=== PATIENT | male | born 1980 | race Caucasian/White ===

== ENCOUNTER 2016-07-11 19:49 | Emergency (ER) | payer SELFPAY ==
[~2016-07-11] VITALS: Ht 180.3 cm; Wt 81.7 kg
[~2016-07-11 19:49] MED LIST: CIPR500T4 PO; HYDR-3498 PO; IBUP-1542 PO; METR500T PO; ONDA4TAB35 PO
[2016-07-11 20:00] VITALS: Ht 180.3 cm; Wt 81.7 kg
[2016-07-11] MEDS ORDERED: HYDROCODONE/APAP (5/325) TAB PO ONE (21:00)
--- NOTE | 2016-07-11 21:58 | ERD ---
ER Documentation Chief Complaint Date/Time DATE: 07/11/16 TIME: 21:57 Chief Complaint Pt c/o RUQ pain x 5 days hx of appendectomy HPI There is a 36-year-old male who presents to the emergency department today complaining of right-sided upper abdominal pain for the past 4-5 days. Patient states that is sharp and stabbing and intermittent and is worse after food. DC is in ibuprofen for the pain. States he has had a history of an appendectomy. Denies any nausea vomiting, fevers or chills. ROS All systems reviewed and are negative except as per history of present illness. Medications Home Meds Active Scripts Tramadol HCl (Tramadol HCl) 50 Mg Tablet, 50 MG PO Q4 Y for PAIN, #20 TAB Prov:MARTIN VILLAREAL PA-C 07/11/16 Ibuprofen* (Motrin*) 800 Mg Tab, 800 MG PO Q6, #30 TAB Prov:MARTIN VILLAREAL PA-C 07/11/16 Hydrocodone Bit-Acetaminophen* ([place]*) 5-325 Mg Tab, 1 TAB PO Q6 Y for PAIN, # 7 TAB Prov:SOFIA ARELLANO PA-C 05/31/15 Ibuprofen* (Motrin*) 600 Mg Tab, 600 MG PO Q6, #20 TAB Prov:SOFIA ARELLANO PA-C 05/31/15 Ondansetron Hcl* (Zofran* ODT) 4 mg -ODT Tab.disper, 4 MG PO Q8 Y for NAUSEA AND /OR VOMITING, #30 TAB Prov:PEPE HARE NP 02/04/15 Hydrocodone Bit-Acetaminophen* ([place]*) 5-325 Mg Tab, 1 TAB PO Q6 Y for PAIN, # 20 TAB Prov:PEPE HARE NP 02/04/15 Metronidazole* (Flagyl*) 500 Mg Tablet, 500 MG PO TID for 10 Days, TAB Prov:PEPE HARE NP 02/04/15 Ciprofloxacin Hcl* (Ciprofloxacin Hcl*) 500 Mg Tablet, 500 MG PO BID for 10 Days , TAB Prov:PEPE HARE NP 02/04/15 Allergies Allergies: Coded Allergies: No Known Allergy (Unverified , 04/08/14) PMhx/Soc History of Surgery: Yes (appendectomy) Anesthesia Reaction: No Hx Neurological Disorder: No Hx Respiratory Disorders: Yes (ASTHMA) Hx Cardiac Disorders: No Hx Psychiatric Problems: No Hx Alcohol Use: Yes Hx Substance Use: Yes Hx Tobacco Use: No Smoking Status: Never smoker Physical Exam Vitals Vital Signs Date Time Temp Pulse Resp B/P Pulse Ox O2 Delivery O2 Flow Rate FiO2 07/11/16 20:00 98.5 102 16 143/80 96 Physical Exam Const: No acute distress Head: Atraumatic Eyes: Normal Conjunctiva ENT: Normal External Ears, Nose and Mouth. Neck: Full range of motion..~ No meningismus. Resp: Clear to auscultation bilaterally Cardio: Regular rate and rhythm, no murmurs Abd: Soft, right upper quadrant tenderness, non distended. Normal bowel sounds. No epigastric pain. No right lower quadrant pain. No left lower quadrant pain. Skin: No petechiae or rashes Back: No midline or flank tenderness Ext: No cyanosis, or edema Neur: Awake and alert Psych: Normal Mood and Affect Result Diagram: 07/11/16213807/11/162138 Results 24 hrs Laboratory Tests Test 07/11/16 21:39 07/11/16 21:40 Alanine Aminotransferase (ALT/SGPT) 88IU/L Albumin 4.7g/dl Albumin/Globulin Ratio 1.38 Alkaline Phosphatase 58IU/L Anion Gap 19 Aspartate Amino Transf (AST/SGOT) 57IU/L Basophils # 0.110^3/ul Basophils % 1.0% Blood Urea Nitrogen 10mg/dl Calcium Level 9.6mg/dl Carbon Dioxide Level 24mmol/L Chloride Level 105mmol/L Creatinine 0.65mg/dl Direct Bilirubin 0.00mg/dl Eosinophils # 0.610^3/ul Eosinophils % 5.0% Globulin 3.40g/dl Glucose Level 84mg/dl Hematocrit 47.0% Hemoglobin 16.5g/dl Indirect Bilirubin 0.3mg/dl Lipase 122U/L Lymphocytes # 2.810^3/ul Lymphocytes % 25.1% Mean Corpuscular Hemoglobin 31.4pg Mean Corpuscular Hemoglobin Concent 35.2g/dl Mean Corpuscular Volume 89.3fl Mean Platelet Volume 8.7fl Monocytes # 0.910^3/ul Monocytes % 7.6% Neutrophils # 6.910^3/ul Neutrophils % 61.3% Nucleated Red Blood Cells # 0.010^3/ul Nucleated Red Blood Cells % 0.0/100WBC Platelet Count 51899^3/UL Potassium Level 4.1mmol/L Red Blood Count 5.2610^6/ul Red Cell Distribution Width 13.2% Sodium Level 144mmol/L Total Bilirubin 0.3mg/dl Total Protein 8.1g/dl White Blood Count 11.310^3/ul Urine Bacteria FEW Urine Bilirubin NEGATIVE Urine Clarity CLEAR Urine Color YELLOW Urine Glucose NEGATIVE% Urine Hemoglobin NEGATIVE Urine Ketones NEGATIVE Urine Leukocyte Esterase TRACE Urine Microscopic RBC NONE SEEN/HPF Urine Microscopic WBC 5-10/HPF Urine Nitrite NEGATIVE Urine Specific [place] 1.020 Urine Total Protein NEGATIVE Urine Urobilinogen 0.2 E.U./dL Urine pH 5.5 Current Medications Medications (Trade) Dose Ordered Sig/Raina Route PRN Reason Start Time Stop Time Status Last Admin Dose Admin Acetaminophen/ Hydrocodone Bitart ([place] (5/325)) 1 tab ONCE ONCE PO 07/11/16 21:00 07/11/16 21:01 DC 07/11/16 21:38 DIAGNOSTIC IMAGING REPORT Patient: BIA SHAFFER : 1980 Age: 36 Sex: M MR #: [id number] DOS: 07/11/162050 Ordering MD: MARTIN VILLAREAL PA-C Location: [facility] Room/Bed: PROCEDURE: US right upper quadrant CLINICAL INDICATION: Abdominal pain TECHNIQUE: Multiple real-time images were acquired of the patient's right upper abdomen utilizing a high resolution transducer. COMPARISON: Ultrasound 05/31/2015 FINDINGS: Liver: Diffusely increased echogenicity is consistent with stable hepatic steatosis. The previously seen area of normal spurring is not evident. There is no obvious mass or ductal dilatation. Normal directional blood flow is seen within the patent main portal vein. The maximum dimension estimated at 17.4 cm . Gallbladder: Echogenic sludge is now seen within the contracted lumen but there is no gallbladder wall thickening or gallstones. No sonographic Keller's sign is reported. Common bile duct: Normal; 3.4 mm. There is no evidence for choledocholithiasis. Right Kidney: Normal; maximum length measured at approximately 12 cm. Pancreas: Visualized portions are normal. The tail is partially obscured by bowel gas. RPTAT:HJJR IMPRESSION: 1. Interval development of gallbladder sludge compared to the study of 2015 without evidence of gallstones or cholecystitis. 2. Hepatic steatosis, the previously suggested area of fat sparing is not identified on this exam. Edvin Zaragoza Physician Date Time Electronically viewed and signed by Edvin Zaragoza Physician on 07/11/2016 22:04 JR/ CC: MARTIN VILLAREAL PA-C Procedures/[facility] This is a 36-year-old male who presents to the emergency department today complaining of right upper quadrant pain on physical exam. Patient had a gallbladder ultrasound approximately 1 year ago that showed the possibility of gallstones however there was too much gas at the time for the patient to be able to be properly evaluated. I did obtain laboratory work as well as a right upper quadrant ultrasound again today. Laboratory work shows a mildly elevated white blood cell count. He is not anemic. Platelets are within normal limits. Electrolytes are within normal limits. Glucose is within normal limits. Liver function is mildly elevated. Lipase is within normal limits. UA shows trace leukocyte esterase Ultrasound shows interval development of gallbladder sludge compared to the study of May 31, 2015 without evidence of gallstones or cholecystitis. There is no gallbladder wall thickening. He has stable hepatic steatosis. There is no evidence for choledocholithiasis. No suspicion for any acute surgical abdomen at this time. Patients symptoms at this time was consistent with biliary colic. Patient was given a [place] here in the emergency department. We will give him a short course of tramadol for home as well as Motrin. At this time the patient is stable for discharge and outpatient management. Patient should follow up with their PCP in the next 1-2 days. I have given him a list of resources as well as resources for GI specialist. They may return to the emergency department sooner for any persistent or worsening of symptoms. Patient understood and agreed with the plan. Departure Diagnosis: Primary Impression: Abdominal pain Abdominal location: right upper quadrant Qualified Code: R10.11 - Right upper quadrant abdominal pain Condition: Fair MARTIN VILLAREAL PA-C Jul 11, 2016 21:58
--- NOTE | 2016-07-11 22:04 | RADRPT ---
PROCEDURE: US right upper quadrant CLINICAL INDICATION: Abdominal pain TECHNIQUE: Multiple real-time images were acquired of the patient's right upper abdomen utilizing a high resolution transducer. COMPARISON: Ultrasound 05/31/2015 FINDINGS: Liver: Diffusely increased echogenicity is consistent with stable hepatic steatosis. The previousl y seen area of normal spurring is not evident. There is no obvious mass or ductal dilatation. Debora l directional blood flow is seen within the patent main portal vein. The maximum dimension estimated at 17.4 cm . Gallbladder: Echogenic sludge is now seen within the contracted lumen but there is no gallbladder w all thickening or gallstones. No sonographic Keller's sign is reported. Common bile duct: Normal; 3.4 mm. There is no evidence for choledocholithiasis. Right Kidney: Normal; maximum length measured at approximately 12 cm. Pancreas: Visualized portions are normal. The tail is partially obscured by bowel gas. RPTAT:HJJR IMPRESSION: 1. Interval development of gallbladder sludge compared to the study of 05/31/2015 without evidence of gallstones or cholecystitis. 2. Hepatic steatosis, the previously suggested area of fat sparing is not identified on this exam. Physician Anthony Date Time Electronically viewed and signed by Physician Anthony on 07/11/2016 22:04 /
[2016-07-11 22:12] LABS: BASOPHIL # 0.1 10^3/ul (0.0-0.1); EOSINOPHILS # 0.6 10^3/ul (0.0-0.5); HEMOGLOBIN 16.5 g/dl (14.0-18.0); LYMPHOCYTES # 2.8 10^3/ul (0.8-2.9); LYMPHOCYTES % 25.1 % (15.0-51.0); MEAN CORPUSCULAR HEMOGLOBIN 31.4 pg (29.0-33.0); MEAN CORPUSCULAR HGB CONC 35.2 g/dl (32.0-37.0); MEAN CORPUSCULAR VOLUME 89.3 fl (82.0-101.0); MEAN PLATELET VOLUME 8.7 fl (7.4-10.4); MONOCYTE # 0.9 10^3/ul (0.3-0.9); MONOCYTES % 7.6 % (0.0-11.0); NEUTROPHIL # 6.9 10^3/ul (1.6-7.5); NEUTROPHILS % 61.3 % (39.0-77.0); PLATELET COUNT 252 10^3/UL (140-440); RED BLOOD COUNT 5.26 10^6/ul (4.70-6.10); RED CELL DISTRIBUTION WIDTH 13.2 % (11.5-14.5); UNCORRECTED WBC 11.3 10^3/ul (4.8-10.8); WHITE BLOOD COUNT 11.3 10^3/ul (4.8-10.8)
[2016-07-11 22:16] LABS: CONDITION 1
[2016-07-11 22:20] LABS: ADD UMIC YES; URINE BILIRUBIN (Dip) NEGATIVE (NEGATIVE); URINE BLOOD (Dip) NEGATIVE (NEGATIVE); URINE GLUCOSE (Dip) NEGATIVE (NEGATIVE); URINE KETONES (Dip) NEGATIVE (NEGATIVE); URINE LEUKOCYTE ESTERASE (Dip) TRACE (NEGATIVE); URINE NITRITE (Dip) NEGATIVE (NEGATIVE); URINE TOTAL PROTEIN (Dip) NEGATIVE (NEGATIVE); URINE UROBILINOGEN (Dip) 0.2 E.U./dL (0.1-1.0)
[2016-07-11 22:21] LABS: ALBUMIN 4.7 g/dl (3.3-4.9); POTASSIUM 4.1 mmol/L (3.5-5.1)
[2016-07-11 22:23] LABS: CREATININE 0.65 mg/dl (0.61-1.24)
[2016-07-11 22:24] LABS: ALBUMIN/GLOBULIN RATIO 1.38; BILIRUBIN,INDIRECT 0.3 mg/dl (0-1.1); BILIRUBIN,TOTAL 0.3 mg/dl (0.2-1.3); TOTAL PROTEIN 8.1 g/dl (6.1-8.1)
[2016-07-11 22:25] LABS: CALCIUM 9.6 mg/dl (8.4-10.2)
[2016-07-11 22:45] LABS: URINE COLOR YELLOW (YELLOW)
[2016-07-11 22:47] LABS: BACTERIA,URINE FEW; URINE RBCS NONE SEEN /HPF (0)
[2016-07-11] MEDS ORDERED: TRAM50TA2 PO (23:03)
[2016-07-11] MEDS ORDERED: IBUP800T25 PO (23:03)
[2016-07-11 23:19] VITALS: BP 130/78; PULSE 95; RESP 16; TEMP 98.5
== END 2016-07-11 23:19 | disposition home or self-care (01) ==
LOC: FTE 19:49
DX: R10.11 Right upper quadrant pain (principal); J45.909 Unspecified asthma, uncomplicated
CPT/HCPCS: 76705; 80053; 81001; 81003; 83690; 85025

== ENCOUNTER 2018-05-13 15:44 | Inpatient (IN) | END 2018-05-17 16:20 | disposition home or self-care (01) | DRG 392 ==

== ENCOUNTER 2019-01-30 10:52 | Emergency (ER) | payer OTHER ==
[~2019-01-30] VITALS: Wt 90.9 kg
[~2019-01-30 10:52] MED LIST changes: +ONDA4TAB8 PO; +TRAM50TA2 PO
[2019-01-30] MEDS ORDERED: LACTATED RINGER'S 1,000 ML IV STA (11:20)
[2019-01-30] MEDS ORDERED: ONDANSETRON 4 MG INJ IV STA (11:20)
[2019-01-30] MEDS ORDERED: KETOROLAC 15 MG INJ IV STA (11:20)
[2019-01-30 13:16] VITALS: BP 148/92; PULSE 68; RESP 20
== END 2019-01-30 13:22 | disposition home or self-care (01) ==
LOC: E/R 10:52
DX: R10.31 Right lower quadrant pain (principal); R11.2 Nausea with vomiting, unspecified
CPT/HCPCS: 36415; 74176; 80053; 83690; 85025; 85610; 85730; 96374; 96375; J1885; J2405; J7120; Z7502